=== PATIENT | female | born 1950 | race Two or more races ===

== ENCOUNTER 2019-06-01 19:28 | Emergency (ER) | payer OTHER ==
[~2019-06-01] VITALS: Ht 167.6 cm; Wt 77.1 kg
[2019-06-01] MEDS ORDERED: TREXALL5 MG (19:50)
[2019-06-01] MEDS ORDERED: SYNTHROID125 MCG PO (19:51)
[2019-06-01] MEDS ORDERED: SYNTHROID112 MCG PO (19:51)
[2019-06-01] MEDS ORDERED: IBU800 MG PO (20:29)
== END 2019-06-01 21:14 | disposition home or self-care (01) ==
LOC: ER 19:28
DX: I80.02 Phlebitis and thrombophlebitis of superficial vessels of left lower extremity (principal)

== ENCOUNTER 2019-07-18 12:13 | Emergency (ER) | payer OTHER ==
[~2019-07-18] VITALS: Ht 167.6 cm; Wt 77.1 kg
[~2019-07-18 12:13] MED LIST: IBU800 MG PO; SYNTHROID112 MCG PO; SYNTHROID125 MCG PO; TREXALL5 MG
[2019-07-18] MEDS ORDERED: MELOXICAM15 MG PO (12:24)
[2019-07-18] MEDS ORDERED: FISH OIL 1,001000 MG (12:25)
[2019-07-18] MEDS ORDERED: PROAIR HFA8.5 GM (12:25)
[2019-07-18] MEDS ORDERED: VITAMIN C500 MG PO (12:25)
== END 2019-07-18 17:39 | disposition home or self-care (01) ==
LOC: ER 12:13
DX: B34.9 Viral infection, unspecified (principal)

== ENCOUNTER 2019-07-25 16:35 | Emergency (ER) | payer OTHER ==
[~2019-07-25] VITALS: Ht 175.3 cm; Wt 76.2 kg
[~2019-07-25 16:35] MED LIST changes: +FISH OIL 1,001000 MG; +MELOXICAM15 MG PO; +PROAIR HFA8.5 GM; +VITAMIN C500 MG PO
== END 2019-07-25 17:17 | disposition home or self-care (01) ==
LOC: ER 16:35
DX: J06.9 Acute upper respiratory infection, unspecified (principal)

== ENCOUNTER 2020-03-25 17:04 | Outpatient (CLI) | payer OTHER | END 2020-03-26 08:28 | disposition home or self-care (01) | LOC: RAD 17:04 | PROVIDERS: ATTEND Internal Medicine Rheumatology | DX: M25.572 Pain in left ankle and joints of left foot (principal); M25.571 Pain in right ankle and joints of right foot; M06.4 Inflammatory polyarthropathy; M25.552 Pain in left hip; M25.551 Pain in right hip; M79.642 Pain in left hand; M79.641 Pain in right hand ==

== ENCOUNTER → 2021-03-16 | Emergency (ER) | payer OTHER ==
[~2021-03-16] VITALS: Ht 165.1 cm; Wt 82.6 kg
== END | disposition left against medical advice (07) ==
LOC: ER 19:22
DX: M79.605 Pain in left leg (principal); M25.571 Pain in right ankle and joints of right foot

== ENCOUNTER 2021-03-17 10:58 | Outpatient (CLI) | payer OTHER | END 2021-03-17 11:01 | disposition home or self-care (01) | LOC: NUCLEAR 10:58 | PROVIDERS: ATTEND General Practice | DX: I87.2 Venous insufficiency (chronic) (peripheral) (principal); I87.311 Chronic venous hypertension (idiopathic) with ulcer of right lower extremity ==

== ENCOUNTER → 2021-03-17 | Emergency (ER) | payer OTHER ==
[~2021-03-17] VITALS: Ht 167.6 cm; Wt 82.6 kg
== END | disposition left against medical advice (07) ==
LOC: ER 14:00
DX: Z53.20 Procedure and treatment not carried out because of patient's decision for unspecified reasons (principal)

== ENCOUNTER 2022-08-24 13:50 | Outpatient (CLI) | payer OTHER | END 2022-08-24 14:10 | disposition home or self-care (01) | LOC: RAD 13:50 | DX: J41.1 Mucopurulent chronic bronchitis (principal); M25.541 Pain in joints of right hand ==

== ENCOUNTER 2023-05-05 11:28 | Outpatient (CLI) | payer OTHER | END 2023-05-05 11:34 | disposition home or self-care (01) | LOC: MAMO-SONO 11:28 | PROVIDERS: ATTEND Obstetrics & Gynecology | DX: N60.11 Diffuse cystic mastopathy of right breast (principal); N60.12 Diffuse cystic mastopathy of left breast; Z12.31 Encounter for screening mammogram for malignant neoplasm of breast ==

== ENCOUNTER 2023-11-29 12:41 | Emergency (ER) | payer OTHER ==
[~2023-11-29] VITALS: Ht 167.6 cm; Wt 81.6 kg
[2023-11-29] MEDS ORDERED: ALBUTEROL SULFATE 3 ML/2.5 MG AMPUL.NEB IH STA (14:24)
[2023-11-29] MEDS ORDERED: BUDESONIDE 0.5 MG/2 ML AMPUL.NEB IH STA (14:24)
[2023-11-29 15:02] LABS: HEMATOCRIT 41.6 % (36.0-45.00); HEMOGLOBIN 14.4 g/dL (12.0-15.00); MEAN CELL VOLUME 89.1 fL (80.00-100.00); MEAN CORPUSCULAR HGB CONC 34.7 g/dl (32.0-36.0); PLATELET COUNT 306 K/uL (150-450); RED BLOOD COUNT 4.66 M/uL (4.00-6.00); RED CELL DISTRIBUTION WIDTH 13.2 % (11.5-14.5)
[2023-11-29] MEDS ORDERED: BUDESONIDE 0.5 MG/2 ML AMPUL.NEB IH ONE (15:25)
[2023-11-29] MEDS ORDERED: ALBUTEROL SULFATE 3 ML/2.5 MG AMPUL.NEB IH ONE (15:25)
[2023-11-29] MEDS ORDERED: ALBUTEROL2.5 MG/3 M IH (16:27)
== END 2023-11-29 16:43 | disposition home or self-care (01) ==
LOC: ER 12:42
PROVIDERS: Emergency Medicine
DX: U07.1 COVID-19 (principal); Z91.013 Allergy to seafood; J45.909 Unspecified asthma, uncomplicated

== ENCOUNTER 2024-03-11 05:58 | Emergency (ER) | payer OTHER ==
[~2024-03-11] VITALS: Ht 167.6 cm; Wt 79.4 kg
[~2024-03-11 05:58] MED LIST changes: +ALBUTEROL2.5 MG/3 M IH
[2024-03-11] MEDS ORDERED: DUPIXENT P200 MG/1.1 SQ (06:17)
[2024-03-11] MEDS ORDERED: DEXAMETHASONE SODIUM PHOSPHATE 4 MG/ML VIAL IM STA (09:08)
[2024-03-11] MEDS ORDERED: KETOROLAC TROMETHAMINE 30 MG VIAL IM STA (09:09)
[2024-03-11] MEDS ORDERED: ORPHENADRINE CITRATE 30 MG/ML AMPUL IM STA (09:09)
[2024-03-11] MEDS ORDERED: NEURONTIN300 MG PO (09:20)
[2024-03-11] MEDS ORDERED: DICLOFENAC POTA50 MG PO (09:20)
[2024-03-11] MEDS ORDERED: ZANAFLEX4 M1 PO (09:20)
== END 2024-03-11 10:15 | disposition home or self-care (01) ==
LOC: ER 06:00
DX: M79.18 Myalgia, other site (principal); E03.8 Other specified hypothyroidism; Z91.013 Allergy to seafood

== ENCOUNTER 2024-03-21 08:48 | Outpatient (CLI) | payer OTHER ==
[~2024-03-21 08:48] MED LIST changes: +DICLOFENAC POTA50 MG PO; +DUPIXENT P200 MG/1.1 SQ; +NEURONTIN300 MG PO; +ZANAFLEX4 M1 PO
== END 2024-03-21 09:02 | disposition home or self-care (01) ==
LOC: MRI 08:48
DX: M54.16 Radiculopathy, lumbar region (principal); M46.1 Sacroiliitis, not elsewhere classified
CPT/HCPCS: 72158; Q9965

== ENCOUNTER 2024-05-24 12:34 | Outpatient (CLI) | payer OTHER | END 2024-05-24 12:43 | disposition home or self-care (01) | LOC: MAMO-SONO 12:34 | PROVIDERS: ATTEND Obstetrics & Gynecology | DX: N60.11 Diffuse cystic mastopathy of right breast (principal); N60.12 Diffuse cystic mastopathy of left breast; Z12.31 Encounter for screening mammogram for malignant neoplasm of breast ==

== ENCOUNTER 2024-06-09 13:06 | Outpatient (CLI) | payer OTHER | END 2024-06-09 13:10 | disposition home or self-care (01) | LOC: NUCLEAR 13:06 | PROVIDERS: ATTEND Obstetrics & Gynecology | DX: M81.0 Age-related osteoporosis without current pathological fracture (principal) ==

== ENCOUNTER 2024-12-21 08:25 | Outpatient (CLI) | payer OTHER | END 2024-12-21 08:26 | disposition home or self-care (01) | LOC: SONOGRAMA 08:25 | DX: R31.9 Hematuria, unspecified (principal); R94.8 Abnormal results of function studies of other organs and systems; E78.5 Hyperlipidemia, unspecified ==

== ENCOUNTER 2025-01-15 12:27 | Outpatient (CLI) | payer OTHER | END 2025-01-15 12:36 | disposition home or self-care (01) | LOC: RAD 12:27 | DX: M25.562 Pain in left knee (principal) ==